=== PATIENT | female | born 1950 | race Two or more races ===

== ENCOUNTER → 2018-03-26 | Outpatient (CLI) | payer OTHER | END | disposition home or self-care (01) | LOC: TOM 10:37 | DX: K57.33 Diverticulitis of large intestine without perforation or abscess with bleeding (principal) ==

== ENCOUNTER 2019-04-02 09:34 | Outpatient (CLI) | payer OTHER ==
[~2019-04-02] VITALS: Ht 167.6 cm; Wt 90.7 kg
== END 2019-04-02 09:50 | disposition home or self-care (01) ==
LOC: OFIC 805 09:34
DX: R13.19 Other dysphagia (principal); M54.2 Cervicalgia; H91.8X2 Other specified hearing loss, left ear; H92.03 Otalgia, bilateral

== ENCOUNTER 2019-05-28 11:14 | Outpatient (CLI) | payer OTHER ==
[~2019-05-28] VITALS: Ht 152.4 cm; Wt 90.7 kg
== END 2019-05-28 11:30 | disposition home or self-care (01) ==
LOC: OFIC 805 11:14
DX: H91.8X3 Other specified hearing loss, bilateral (principal); R22.1 Localized swelling, mass and lump, neck; H92.03 Otalgia, bilateral; M54.2 Cervicalgia

== ENCOUNTER 2019-08-14 10:36 | Outpatient (CLI) | payer OTHER ==
[~2019-08-14] VITALS: Ht 152.4 cm; Wt 90.7 kg
== END 2019-08-14 12:23 | disposition home or self-care (01) ==
LOC: OFIC 805 10:36
DX: J32.8 Other chronic sinusitis (principal); R42 Dizziness and giddiness; H90.3 Sensorineural hearing loss, bilateral; J31.0 Chronic rhinitis; J34.2 Deviated nasal septum; H93.13 Tinnitus, bilateral

== ENCOUNTER → 2019-09-10 11:40 | Outpatient (CLI) | payer OTHER | END | disposition home or self-care (01) | LOC: LAB 11:40 | DX: E55.9 Vitamin D deficiency, unspecified (principal); B20 Human immunodeficiency virus [HIV] disease ==

== ENCOUNTER 2019-09-10 12:31 | Outpatient (CLI) | payer OTHER | END 2019-09-10 12:38 | disposition home or self-care (01) | LOC: RAD 12:31 | DX: B20 Human immunodeficiency virus [HIV] disease (principal); M54.06 Panniculitis affecting regions of neck and back, lumbar region; M54.07 Panniculitis affecting regions of neck and back, lumbosacral region; M54.09 Panniculitis affecting regions, neck and back, multiple sites in spine ==

== ENCOUNTER 2019-09-15 11:08 | Outpatient (CLI) | payer OTHER | END 2019-09-15 11:16 | disposition home or self-care (01) | LOC: EKG 11:08 | DX: I10 Essential (primary) hypertension (principal) ==

== ENCOUNTER 2020-03-30 06:30 | Day surgery (SDC) | payer OTHER ==
[~2020-03-30 06:30] MED LIST: ACID REDUCER20 M1 PO; CYMBALTA60 MG PO; DESCOVY 200-251 EACH PO; LASIX20 MG PO; LIPITOR40 MG PO; LOSARTAN POTASS25 MG PO; LYRICA100 MG PO; MELOXICAM15 MG PO; SINGULAIR 10MG10 MG PO; SYNTHROID50 MCG PO; TIVICAY50 MG PO; ZOLOFT50 MG PO
== END 2020-03-30 10:24 | disposition home or self-care (01) ==
LOC: CIR.AMB 06:30
DX: M67.843 Other specified disorders of tendon, right hand (principal)

== ENCOUNTER 2020-05-11 08:15 | Day surgery (SDC) | payer OTHER | END 2020-05-11 13:15 | disposition home or self-care (01) | LOC: CIR.AMB 08:15 | PROVIDERS: ATTEND Surgery Surgery of the Hand | DX: M67.844 Other specified disorders of tendon, left hand (principal) ==